=== PATIENT | male | born 1950 | race Caucasian/White ===

== ENCOUNTER 2022-10-25 00:37 | Day surgery (SDC) | payer MEDICARE, SELFPAY ==
--- NOTE | 2022-09-05 09:48 | PC.NURSE ---
Received last office visit of 08/31/2022 from wash worker. Pt had abnormal stress test and EKG, cardiology recommends pt to have a CCTA done for further evaluation of those test results and pt symptoms of fatigue and SOB with exertion. Reviewed by anesthesia-Dr. Cuellar per Mare Mar RN and he would like Neoplasm Screening to be postponed pending further cardiac work-up.
[2022-10-17 09:45] VITALS: BMI 24.4
--- NOTE | 2022-10-24 08:25 | P.PNAN_ITS ---
Anes - Initial Pre Proc Eval Procedure: Operation Date: 10/25/22 08:00 Proposed Procedures p Screening Colonoscopy - Jovanny Saenz MD Date/Time: 10/24/22 08:25 Surgeon: Jovanny Saenz MD Pre Op Diagnosis: neoplasm screening Patient Data Age: 72 Gender: M Height: 1.78 m Weight: 77.3 kg Allergies Allergy/AdvReac Type Severity Reaction Status Date / Time No Known Allergies Allergy Unknown Verified 10/25/22 07:04 Home Medications Medication Instructions Recorded Confirmed Type clopidogrel 75 mg tablet 75 mg PO DAILY 07/12/22 10/17/22 History rosuvastatin 10 mg tablet 10 mg PO DAILY 07/12/22 10/17/22 History amlodipine 10 mg tablet 10 mg PO DAILY 10/17/22 10/17/22 History aspirin 81 mg tablet 81 mg PO DAILY 10/17/22 10/17/22 History carvedilol 3.125 mg tablet 3.125 mg PO BID 10/17/22 10/17/22 History acyclovir 400 mg tablet 400 mg PO TID #15 tabs 10/22/22 Rx Patient hx anesthesia problems: none Family hx anesthesia problems: none Results Review: All pre-operative results and documents have been reviewed as part of the pre- operative evaluation. [facility] Past Medical History Medical History (Updated 10/24/22 @ 08:26 by Will Pompa DO) Hyperlipidemia Hypertension Peripheral arterial disease arterial doppler 04/09/2022 Surgical History Surgical History (Updated 07/10/22 @ 15:15 by Sondra Topete MA) Hx of bilateral inguinal hernia repair Family History Family History (Updated 07/10/22 @ 15:16 by Sondra Topete MA) Father Lung cancer Malignant neoplasm of prostate Mother Ovarian cancer Social History Social History (System 09/16/19 @ 14:54 by Angella Ruiz) Smoking packs per day: 1.5 Smoking cigarettes per day: 30.0 Years smoked: 55 Smoking pack-years: 82.50 Smoking status: Current every day smoker Tobacco type: cigarettes Alcohol intake: current Drinks per week: 6 Alcohol use details: beer Substance use: current Substance use type: marijuana Last use: occasionally Living arrangements: with family Spiritual care concerns: No Anes - Eval Final PreProcedure Day of Procedure 10/24/22 08:25 Patient weight: normal Heart: regular rate and rhythm Lungs: clear to auscultation and normal air movement Airway: Mallampati scale class II Neurological: alert and oriented Last oral intake: >/= 8 hours ASA classification: III Emergent: no Anesthetic plan: proceed Anesthesia type and monitoring: general GIVS and standard monitoring Results Review: All pre-operative results and documents have been reviewed as part of the pre- operative evaluation. Informed Consent: The patient's anesthetic plan and its attendant risks and benefits were discussed with the patient/family/POA. Questions were solicited and answers provided to the satisfaction of the patient/family/POA.
[2022-10-25 07:06] VITALS: BP 114/67; PULSE 67; RESP 18; TEMP 36.4; O2SAT 97
[2022-10-25] MEDS: LACTATED RINGERS 1,000 ML 150 ML IV CONT (07:15)
--- NOTE | 2022-10-25 07:51 | PM.HPGS ---
History of Present Illness History of Present Illness Consent: Risks, benefits, and alternatives have been discussed and questions answered. Patient agrees to proceed with procedure. Chief complaint: neoplasm screening Narrative: Audi Elena Sr. is a 72 year old male Presents for screening colonoscopy. Patient's current weight appetite and bowel movements are normal. Patient denies abdominal pain. He has had no bleeding. Family history noncontributory. Patient last colonoscopy 10 years ago was unremarkable. Patient does have a history of peripheral vascular disease and stents to the lower extremities for this reason he remains on Plavix which will be held briefly prior to endoscopy. Review of Systems Review of Systems: Review of systems noncontributory. [facility] Past Medical History Medical History (Updated 10/25/22 @ 07:52 by Jovanny Saenz MD) Hyperlipidemia Hypertension Peripheral arterial disease arterial doppler 04/09/2022 Surgical History Surgical History (Updated 07/10/22 @ 15:15 by Sondra Topete MA) Hx of bilateral inguinal hernia repair Family History Family History (Updated 07/10/22 @ 15:16 by Sondra Topete MA) Father Lung cancer Malignant neoplasm of prostate Mother Ovarian cancer Social History Social History (System 09/16/19 @ 14:54 by Angella Ruiz) Smoking packs per day: 1.5 Smoking cigarettes per day: 30.0 Years smoked: 55 Smoking pack-years: 82.50 Smoking status: Current every day smoker Tobacco type: cigarettes Alcohol intake: current Drinks per week: 6 Alcohol use details: beer Substance use: current Substance use type: marijuana Last use: occasionally Living arrangements: with family Spiritual care concerns: No Meds Home Medications and Allergies Home Medications Medication Instructions Recorded Confirmed Type clopidogrel 75 mg tablet 75 mg PO DAILY 07/12/22 10/17/22 History rosuvastatin 10 mg tablet 10 mg PO DAILY 07/12/22 10/17/22 History amlodipine 10 mg tablet 10 mg PO DAILY 10/17/22 10/17/22 History aspirin 81 mg tablet 81 mg PO DAILY 10/17/22 10/17/22 History carvedilol 3.125 mg tablet 3.125 mg PO BID 10/17/22 10/17/22 History acyclovir 400 mg tablet 400 mg PO TID #15 tabs 10/22/22 10/25/22 Rx Allergies Allergy/AdvReac Type Severity Reaction Status Date / Time No Known Allergies Allergy Unknown Verified 10/25/22 07:04 Vital Signs Vital Signs - 24 hr 10/25/22 07:06 Temperature 97.6 F Pulse Rate 67 Respiratory Rate 18 Blood Pressure 114/67 Pulse Oximetry 97 Oxygen Delivery Room Air Exam Narrative: Physical exam reveals patient be alert. Vital signs stable. HEENT exam is unremarkable. Patient is anicteric. Lungs are clear to auscultation and percussion. Heart is without murmur or extra sounds. Abdomen bowel sounds are present soft nontender with no organomegaly. Digital external rectal exam is normal. Assessment and Plan Assessment and plan (1) Encounter for screening colonoscopy: Code(s): Z12.11 - Encounter for screening for malignant neoplasm of colon Status: Acute Assessment and Plan: Patient presents today for screening colonoscopy. He appears to be at average risk for colon polyps. Further recommendations may be given after endoscopy.
[2022-10-25 08:14] VITALS: BP 95/53; PULSE 55; RESP 16; O2SAT 94
[2022-10-25 08:24] VITALS: BP 120/53; PULSE 64; RESP 16; O2SAT 95
[2022-10-25 08:34] VITALS: BP 126/65; PULSE 55; RESP 16; O2SAT 96
== END 2022-10-25 08:53 | disposition home or self-care (01) ==
PROVIDERS: PCP Family Medicine Adolescent Medicine; Visit Provider Internal Medicine Gastroenterology
PROC: 0DJD8ZZ Inspection of Lower Intestinal Tract, Via Natural or Artificial Opening Endoscopic (ICD-10-PCS; CPT 45378; principal; 2022-10-25 08:00)
DX: Z12.11 Encounter for screening for malignant neoplasm of colon (principal); K63.5 Polyp of colon; K64.8 Other hemorrhoids; I10 Essential (primary) hypertension; E78.5 Hyperlipidemia, unspecified; I73.9 Peripheral vascular disease, unspecified; Z79.02 Long term (current) use of antithrombotics/antiplatelets; Z79.84 Long term (current) use of oral hypoglycemic drugs; F17.210 Nicotine dependence, cigarettes, uncomplicated; F12.90 Cannabis use, unspecified, uncomplicated
CPT/HCPCS: 45385; 88305; J2704; J7120

== ENCOUNTER 2024-09-03 14:40 | Outpatient (CLI) | payer MEDICARE, SELFPAY ==
--- NOTE | ~2024-09-03 | XR_ITS ---
HISTORY: M25.511 - Pain in right shoulder COMPARISON: None TECHNIQUE: 3 views of the right shoulder were performed FINDINGS: No acute fracture. Degenerative disease is identified within the acromioclavicular joint space with osteophyte formation and medial downsloping. The glenohumeral joint space is maintained. Increased interstitial markings within the adjacent right lung field, with findings suggesting inters titial lung disease. The humeral head is well seated within the glenoid fossa. IMPRESSION: Degenerative disease, without acute fracture or anterior dislocation. Reviewed, dictated and finalized at location A. NSIVE LINE COACH
== END 2024-09-03 14:41 | disposition home or self-care (01) ==
LOC: MICIMG 14:41
PROVIDERS: PCP Family Medicine Adolescent Medicine; Visit Provider Nurse Practitioner Family
DX: M19.011 Primary osteoarthritis, right shoulder (principal)
CPT/HCPCS: 73030

== ENCOUNTER 2025-09-02 10:49 | Outpatient (CLI) | payer MEDICARE, SELFPAY ==
--- NOTE | ~2025-09-02 | CT_ITS ---
EXAMINATION:CT lung screening DATE: 09/02/2025 11:18 INDICATION: Screening TECHNIQUE: Computed tomography (CT) of the chest was performed without intravenous contrast. The dose-length product (DLP) was 79.37 mGy-cm. COMPARISON: None. FINDINGS: 6 x 3 x 4 cm left hilar mass present with 10 x 4 mm right major fissure pleural-based nodule image 74 series 4. No other lung nodules. Severe emphysematous changes with no consolidation effusion or pneumothorax. Lymphadenopathy probably present. The right-sided lymph nodes difficult to evaluate with noncontrast low-dose screening technique. Cystic changes in the left kidney. No acute process seen in the visualized upper abdomen. Diffuse degenerative changes throughout the bones which otherwise appear intact. IMPRESSION: Large left hilar mass likely representing malignant disease. Correlate with diagnostic contrast-enhanced chest CT or PET/CT. Reviewed, dictated and finalized at location A. ND SUPPORT EQUIPMENT ASSEMBLER IMPRESSION: Large left hilar mass likely representing malignant disease. Correl ate with diagnostic contrast-enhanced chest CT or PET/CT.
== END 2025-09-02 10:50 | disposition home or self-care (01) ==
LOC: MICIMG 10:49
PROVIDERS: PCP Family Medicine Adolescent Medicine; Visit Provider Family Medicine Adolescent Medicine
DX: Z12.2 Encounter for screening for malignant neoplasm of respiratory organs (principal); R91.8 Other nonspecific abnormal finding of lung field; Z87.891 Personal history of nicotine dependence
CPT/HCPCS: 71271

== ENCOUNTER 2025-09-28 07:27 | Outpatient (CLI) | payer MEDICARE, SELFPAY ==
--- NOTE | ~2025-09-28 | PE_ITS ---
EXAMINATION: PET skull to mid thigh DATE: 09/28/2025 10:56 INDICATION: Left hilar lung mass TECHNIQUE: Blood glucose level was 95 mg/dL. 9.227 mCi of 18-fluorodeoxyglucose (18-FDG) was administered i.v. Low dose computed tomography (CT) images were acquired from the base of the brain to the proximal thighs for attenuation correction and anatomic localization. Positron emission tomography (PET) images were acquired in the same distribution beginning minutes after injection. Images including fused PET/CT images were reconstructed in axial, coronal, and sagittal planes. Automated exposure control technique was employed. The dose-length product was 761.50mGy-cm. COMPARISON: None FINDINGS: Head/neck: There is symmetric increased activity in the oral cavity, palatine tonsils, laryngeal muscles and ocular muscles without CT correlate, likely physiologic. There is also mild uptake associated with moderate mucosal thickening in the bilateral maxillary sinuses. No pathologically enlarged cervical lymphadenopathy or suspicious foci of increased FDG uptake in the visualized head or neck. Chest: Severe emphysema. There is a 9 mm FDG avid left upper lobe nodule abutting the pleura along the pulmonary outflow tract with mild increased FDG uptake with maximal SUV of 4.4 suspicious for primary lung cancer. No pneumonia, pulmonary edema or pleural effusion. There is an approximately 4 cm FDG avid left hilar mass, the margins of which are difficult to distinguish from the pulmonary vasculature at the hilum and with maximal SUV of 9.0 concerning for metastatic disease. There is dependent atelectasis in the bilateral upper and lower lobes. Heart size is normal. Atherosclerotic coronary artery calcification. No pericardial effusion. Thoracic aorta is normal in caliber. Abdomen/pelvis/proximal thighs: Physiologic renal accumulation and excretion of FDG activity in the kidneys, bladder and along portions of ureters. Photopenic defects associated with bilateral low-attenuation renal cysts the largest on the right measuring 9.6 cm and the largest on the left measuring 6.5 cm. Normal degree and heterogenous pattern of increased uptake throughout the liver without radiologic correlate or dominant FDG avid lesion. The gallbladder, pancreas and bilateral adrenal glands are normal. Or stricture is atrophic calcifications along a small portion the spleen, likely sequela of prior infection, trauma or infarct. Mild uptake scattered throughout the bowels without radiologic correlate, also likely physiologic. Normal appendix. Prostatomegaly measuring 4.8 x 4.1 cm. Minimal ascites in the dependent the pelvis. There is calcified atherosclerosis of the aorta and many of the other arteries. There is stenting along the bilateral external iliac arteries. No other abnormal foci of increased FDG uptake or pathologically enlarged lymphadenopathy in the abdomen, pelvis or proximal thighs. Musculoskeletal: Mild lumbar levocurvature with severe spondylosis. Moderate thoracic and lower cervical spondylosis. No suspicious lytic, blastic or abnormally FDG avid bone lesions. IMPRESSION: 1. Small FDG avid nodule in the left upper lobe suspicious for primary lung cancer with bulky FDG avid left hilar lymphadenopathy consistent with metastatic disease. Given the location of the pulmonary nodule abutting the pulmonary outflow tract and the severity of emphysema would recommend bronchoscopic biopsy. 2. No lesion suspicious for metastatic disease in the abdomen or pelvis. 3. Prostatomegaly. 4. Small amount of nonspecific ascites in the deep pelvis. Reviewed, dictated and finalized at location A. HOUSE INSULATION WORKER IMPRESSION: 1. Small FDG avid nodule in the left upper lobe suspicious for primary lung can cer with bulky FDG avid left hilar lymphadenopathy consistent with metastatic d isease. Given the location of the pulmonary nodule abutting the pulmonary outfl ow tract and the severity of emphysema would recommend bronchoscopic biopsy. 2. No lesion suspicious for metastatic disease in the abdomen or pelvis. 3. Prostatomegaly. 4. Small amount of nonspecific ascites in the deep pelvis.
--- OUTSIDE RECORDS SUMMARY | 2025-09-28 07:30 | XMS_ITS | Clinical Summary ---
Author Organization [facility] Address [address] [place] [id number] Care Team Providers Care Aviation Engineer Name Role Phone Gordon Alexnadre MD Unavailable [phone] Khanh Whitehead MD Primary Care Prov ider Allergies No known active allergies Medications rosuvastatin (CRESTOR) 10 mg tablet Take 10 mg by mouth daily 04/30/2022 Active clopidogreL (PLAVIX) 75 mg tablet Take 75 mg by mouth daily 04/30/2022 Active docosahexaenoic acid-epa 120-180 mg capsule Take by mouth Active multivitamin capsule Take 1 capsule by mouth daily Active aspirin 81 mg chewable tablet Take 1 tablet (81 mg total) by mouth daily 30 tablet 11 07/28/2022 Active amLODIPine (NORVASC) 10 mg tablet Take 1 tablet (10 mg total) by mouth daily 30 tablet 11 07/27/2022 Active carvediloL (COREG) 3.125 mg tablet 11/23/2022 Active multivitamin-mi nerals-lutein tablet Take 1 tablet/capsul e by mouth daily Active omega-3 fatty acids-fish oil 300-1,000 mg capsule Take 2 capsules (2 g total) by mouth daily Active Active Problems Problem Noted Date Diagnosed Date PVD (peripheral vascular disease) 07/26/2022 Peripheral artery disease 05/16/2022 Overview (05/16/2022): Added automatically from request for surgery [id number] Surgical History Surgery Date Site/Laterality Comments FISTULA REPAIR HERNIA REPAIR HEMORROIDECTOMY Medical History Medical History Date Comments Peripheral artery disease GERD (gastroesophageal reflux disease) HL (hearing loss) Tinnitus Family History Medical History Relation Name Comments No Known Problems Father No Known Problems Mother Relation Name Status Comments Father Mother Social History Tobacco Use Types Packs/Day Years Used Date Smoking Tobacco: Every Day Cigarettes Smokeless Tobacco: Never Tobacco Cessation:Ready to Q uit: No; Counseling Given: Yes AUDIT-C Answer Date Recorded Q1: How often do you have a drink containing alc ohol? Monthly or less 07/26/2022 Q2: How many drinks containi ng alcohol do you have on a typical day when you are drinking? 1 or 2 07/26/2022 Q3: How often do you have si x or more drinks on one occasion? 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 Gender Identity Not on file Sexual Orientation Not on file Last Filed Vital Signs Vital Sign Reading Time Taken Comments Blood Pressure 127/68 07/27/2022 7:45 AM CDT Pulse 67 07/27/2022 7:45 AM CDT Temperature 36.7 C (98 F) 07/27/2022 7:45 AM CDT Respiratory Rate 20 07/27/2022 7:45 AM CDT Oxygen Saturation 94% 07/27/2022 7:45 AM CDT Inhaled Oxygen Concentration - - Weight 77.1 kg (170 lb) 11/23/2022 10:28 AM DIRECTOR OF FINANCIAL PLANNING Height 177.8 cm (5' 10) 11/23/2022 10:28 AM DIRECTOR OF FINANCIAL PLANNING Body Mass Index 24.39 11/23/2022 10:28 AM DIRECTOR OF FINANCIAL PLANNING Plan of Treatment Health Maintenance Due Date Last Done Comments Colon Cancer Screening-Colonoscopy 1950 Depression Screening 1950 Hepatitis C Screening 1950 DTaP/Tdap/Td Vaccine (1 - Tdap) 1962 Hepatitis B Screening 1969 Abdominal Aortic Aneurysm (A AA) Screen 2016 Well Visit 65+ 2016 Pneumococcal vaccine 65+ (2 of 2 - PPSV23, PCV20, or PCV21) 07/25/2017 05/30/2017 Fall Risk Assessment 07/27/2023 07/27/2022 Covid-19 Vaccine (6 - 2024-2 6 season) 2025 07/12/2022, 02/01/2022, 08/21/2021, Additional history exists Influenza Vaccine (#1) 2025 07/12/2022 Zoster Vaccine Completed 10/15/2019, 07/30/2019 Medical Devices Implanted Type Area Proposal Rep Device Identifier Shelf Expiration Date Model / Serial / Lot [employer] Everflex Entrust 6mm 100mm 120cm Self Expand Triaxial Low Profile - [id number] Implanted:Qty: 1 on 07/26/2022 by Gordon Alexandre MD at [facility] [employer] 10/16/2024 [id number] / / [id number] [employer] Everflex Entrust 7mm 80mm 120cm Triaxial Self Expand Low Profile - [id number] Implanted:Qty: 1 on 07/26/2022 by Gordon Alexandre MD at [facility] [employer] 11/25/2022 [id number] / / [id number] Insurance MEDICARE Advance Directives For more information, please contact: [phone] * Full Code (Latest Code Status on File) Date Activated Date Inactivated Comments 07/26/2022 4:48 PM 07/27/2022 2:20 PM Care Teams Aviation Engineer Relationship Specialty Start Date End Date Khanh Whitehead MD [address] [place] [address] PCP - General Family Medicine 06/17/25 Gordon Alexandre MD Consulting Physician Interventional Cardiology 07/27/22
== END 2025-09-28 07:28 | disposition home or self-care (01) ==
PROVIDERS: PCP Family Medicine Adolescent Medicine; Visit Provider Family Medicine Adolescent Medicine
DX: R91.8 Other nonspecific abnormal finding of lung field (principal); R91.1 Solitary pulmonary nodule; R18.8 Other ascites; N40.0 Benign prostatic hyperplasia without lower urinary tract symptoms
CPT/HCPCS: 78815; A9552

== ENCOUNTER 2025-10-11 11:27 | Emergency (ER) | payer MEDICARE, SELFPAY ==
[2025-10-11] VITALS (14 sets, daily range): BP systolic 111–155; BP diastolic 54–72; PULSE 46–62; RESP 14–22; TEMP 36.7; O2SAT 86–96
--- NOTE | ~2025-10-11 | XR_ITS ---
XR chest 2V 10/11/2025 12:56 Indication: Dyspnea Procedure: 2 view chest Comparison: No prior studies for comparison. Findings: Heart size normal. There is a left hilar mass, suspicious for malignancy. There is extensive mixed interstitial and airspace disease bilaterally. No significant effusion. No pneumothorax. The lungs are hyperinflated which is consistent with, but not diagnostic of chronic obstructive pulmonary disease. Impression: 1: Left hilar mass, suspicious for malignancy. Correlation with CT chest with contrast recommended. 2: Mixed interstitial and airspace disease bilaterally and primarily involving the mid and lower lung zones, most likely edema versus atypical pneumonia. Reviewed, dictated and finalized at location O. 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 Correlation with CT chest with c ontrast recommended. 2: Mixed interstitial and airspace disease bilaterally and primarily involving the mid and lower lung zones, most likely edema versus atypical pneumonia.
--- NOTE | 2025-10-11 11:41 | ECG_ITS ---
Test Date: 2025-10-11 12:01:45 Measurements Intervals Enloe Rate: 46 P: 62 SD: 142 QRS: 6 QRSD: 87 T: 56 QT: 459 QTc: 404 Interpretive Statements SINUS BRADYCARDIA BORDERLINE ST ABNORMALITY- ANTEROLATERAL LEADS BASELINE ARTIFACT- I, III, AVR, AVL ABNORMAL ECG No previous ECG available for comparison Electronically Signed On 10-11-2025 22:18:54 TOOL OR DIE DRAWING CHECKER by Salazar Franklin D.O.
--- OUTSIDE RECORDS SUMMARY | 2025-10-11 12:05 | XMS_ITS | Clinical Summary ---
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 Gender Identity Not on file Sexual Orientation [...] 77.1 kg (170 lb) 11/23/2022 10:28 AM TAPE RULES PRINTING MACHINE OPERATOR Height 177.8 cm (5' 10) 11/23/2022 10:28 AM TAPE RULES PRINTING MACHINE OPERATOR Body Mass Index 24.39 11/23/2022 10:28 AM TAPE RULES PRINTING MACHINE OPERATOR Plan of Treatment Health Maintenance Due Date [...] 10/15/2019, 07/30/2019 Medical Devices Implanted Type Area Bulk Tank Car Unloader Device Identifier Shelf Expiration Date Model / Serial / Lot [employer] Everflex Entrust 6mm 100mm 120cm Self Expand Triaxial Low Profile - [id number] Implanted:Qty: 1 on 07/26/2022 by Gordon Alexandre MD at [facility] [employer] 10/16/2024 [id number] / / [id number] [employer] Everflex Entrust 7mm 80mm 120cm Triaxial Self Expand Low Profile - [id number] Implanted:Qty: 1 on 07/26/2022 by Gordon Alexandre MD at [facility] [employer] 11/25/2022 [id number] / / [id number] Insurance MEDICARE Advance Directives For more information, please contact: [phone] * Full Code (Latest Code Status on File) Date Activated Date Inactivated Comments 07/26/2022 4:48 PM 07/27/2022 2:20 PM Care Teams Engineer Operations And Maintenance Relationship Specialty Start Date End Date Khanh Whitehead MD [address] [place] [address] PCP - General Family Medicine 06/17/25 Gordon Alexandre MD Consulting Physician Interventional Cardiology 07/27/22
--- OUTSIDE RECORDS SUMMARY | 2025-10-11 12:05 | XMS_ITS | Clinical Summary ---
Author Organization [facility] Address [address] [place] [address] Care Team Providers Care Applications Developer Name Role Phone Khanh Whitehead MD Unavailable [phone] Khanh Whitehead MD Primary Care Provider + Jolie Mccauley RN Unavailable Unavailab le Source Comments [facility],non-owned Affiliates and Associated Physician Practices is amultiple site organization consisting of ambulatory clinics and hospital sitesin [place], [place], [place] and [place]. This disclosure is being madepursuant to the Care Everywhere program and may not contain all information available regarding this patient. Last updated 18.[facility] Allergies No known active allergies Medications * Be aware that medications may not be up to date on this document. Alwaysverify current medications with the patient. [place]-3 Fatty Acids (FISH OIL) 1000 MG capsule Acti ve Fexofenadine HCl (MUCINEX ALLERGY PO) Active Active Problems Problem Noted Date Diagnosed Date Follow-up examination, following other surgery 0 10/23/2012 Displacement of lumbar inter vertebral disc without myelopathy 09/16/2012 Family History Medical History Relation Name Comments Cancer - Prostate Father CVA Mother Relation Name Status Comments Father Mother Social History Tobacco Use Types Packs/Day Years Used Date Smoking Tobacco: Every Day Cigarettes 1.5 45 Smokeless Tobacco: Never Tobacco Cessation:Ready to Q uit: No; Counseling Given: Yes Alcohol Use Standard Drinks/Week Comments Yes 1.7 (1 standard drink = 0.6 oz p ure alcohol) socially with pool Sex and Gender Information Value Date Recorded Sex Assigned at Not on file Legal Sex Male 11:38 AM QUESTIONED DOCUMENTS EXAMINER Gender Identity Not on file Sexual Orientation Not on file 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 on file Not on file Not on file Last Filed Vital Signs Vital Sign Reading Time Taken Comments Blood Pressure 107/69 03/25/2018 11:00 AM CDT Pulse 51 03/25/2018 11:00 AM CDT Temperature 36.3 C (97.4 F) 03/25/2018 11:00 AM CDT Respiratory Rate 16 01/24/2018 1:56 PM CDT Oxygen Saturation 96% 03/25/2018 11:00 AM CDT Inhaled Oxygen Concentration - - Weight 76.2 kg (168 lb) 03/25/2018 11:00 AM CDT Height 175.3 cm (5' 9) 03/25/2018 11:00 AM CDT Body Mass Index 24.81 03/25/2018 11:00 AM CDT Plan of Treatment Health Maintenance Due Date Last Done Comments COLOGUARD (AGES 45-75) - COL ON CA SCREENING 1951 COLON MONITORING 1951 COLONOSCOPY - COLON CA SCREENING 1951 CT COLONOGRAPHY - COLON CA SCREENING 1950 Colorectal Cancer Screening 1951 FIT - COLON CA SCREENING 1951 FLEX SIG - COLON CA SCREENING 1951 LIPID TESTING 1951 HEPATITIS C SCREENING 07/01/1969 DTAP/TDAP/TD VACCINES (1 - Tdap) 1970 LUNG CANCER SCREENING 2001 PNEUMOCOCCAL VACCINE 50+ (1 of 1 - PCV) 2001 ZOSTER VACCINE (1 of 2) 2001 AAA SCREENING 2016 DEPRESSION SCREENING 10/14/2024 COVID-19 VACCINE (1 - 2024-2 6 season) 2025 INFLUENZA VACCINE (#1) 2025 Respiratory Syncytial Virus (RSV) Vaccine Pt: or over 60 yrs (1 - 1-dose 75+ series) 2026 HEPATITIS B VACCINE Aged Out No longe r eligible based on patient's age to complete this topic HIB VACCINE Aged Out No longer eligi ble based on patient's age to complete this topic HPV VACCINE Aged Out No longer eligi ble based on patient's age to complete this topic MENINGOCOCCAL (Group B) VACC INE SHARED DECISION-MAKING Aged Out No longer eligibl e based on patient's age to complete this topic MENINGOCOCCAL GROUPS A/C/Y/W VACCINE Aged Out No longer eligible b ased on patient's age to complete this topic Medical Devices Implanted Type Area Flight Crew Ordnanceman Device Identifier Shelf Expiration Date Model / Serial / Lot Mesh Srg 3dmax 6x4in Lg 3d Crv Contr Sl Implanted:Qty: 1 on 01/24/2018 by Sav Trivedi MD at [facility] Right: Inguinal [employer] 09/10/2022 [id number] / / [id number] Mesh Srg 3dmax 6x4in Lg 3d Crv Contr Sl Implanted:Qty: 1 on 01/24/2018 by Sav Trivedi MD at [facility] Left: Inguinal [employer] 12/11/2022 [id number] / / [id number] Insurance AETNA BC/BLUE BLUE CROSS BLUE [facility] AETNA Advance Directives * FULL RESUSCITATION (Latest Code Status on File) Date Activated Date Inactivated Comments 09/30/2012 3:40 PM 10/01/2012 12:17 PM Care Teams Applications Developer Relationship Specialty Start Date End Date Khanh Whitehead MD [address] [address] PCP - General Family Medicine 09/30/12 Khanh Whitehead MD [address] [place] [id number] Referring Physician Family Medicine 09/15/12 Jolie Mccauley, RN Registered Nurse 01/24/18
[2025-10-11 12:08] LABS: Hematocrit 46.7 % (42.0-52.0); Hemoglobin 16.0 g/dL (14.0-18.0); Immature Granulocyte Percent A 0.4 % (0-0.5); Lymphocytes Absolute Auto 1.55 K/mm3 (0.9-3.2); Mean Corpuscular HGB Conc 34.3 g/dl (32-36); Mean Corpuscular Hemoglobin 34.3 pg (26-34); Mean Corpuscular Volume 100.2 fl (80-100); Nucleated Red Blood Cells Absolute Auto 0.000 K/mm3 (0.0-0.012); Nucleated Red Blood Cells Perc 0.0 % (0.0-0.2); Platelet Count Result 223 k/mm3 (150-375); Red Blood Count 4.66 M/mm3 (4.6-6.20); White Blood Count 9.3 K/mm3 (4.5-10.0)
[2025-10-11 12:34] LABS: Alanine Aminotransferase 20 U/L (6-50); Albumin Level 4.2 g/dL (3.5-5.1); Alkaline Phosphatase 54 U/L (38-126); Anion Gap 5 mmol/L (4-12); Aspartate Amino Transferase 32 U/L (17-59); Bilirubin,Total 0.8 mg/dL (0.2-1.3); Blood Urea Nitrogen 18 mg/dL (9-20); Calcium 9.4 mg/dL (8.4-10.2); Carbon Dioxide 23 mmol/L (22-30); Chloride 108 mmol/L (98-107); Estimated CRCL calculation 73 ml/min; Estimated Glomerular Filt Rate > 60; Glucose 92 mg/dL (65-110); Potassium 4.6 mmol/L (3.4-5.0); Sodium 136 mmol/L (137-145); Total Protein 7.6 g/dL (6.3-8.2)
--- OUTSIDE RECORDS SUMMARY | 2025-10-11 12:35 | XMS_ITS | Clinical Summary ---
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 Gender Identity Not on file Sexual Orientation [...] 77.1 kg (170 lb) 11/23/2022 10:28 AM INFORMATION TECHNOLOGY CONSULTANT Height 177.8 cm (5' 10) 11/23/2022 10:28 AM INFORMATION TECHNOLOGY CONSULTANT Body Mass Index 24.39 11/23/2022 10:28 AM INFORMATION TECHNOLOGY CONSULTANT Plan of Treatment Health Maintenance Due Date [...] 10/15/2019, 07/30/2019 Medical Devices Implanted Type Area Medical Examiner Device Identifier Shelf Expiration Date Model / Serial / Lot Medtronic Inc Everflex Entrust 6mm 100mm 120cm Self Expand Triaxial Low Profile - [id number] Implanted:Qty: 1 on 07/26/2022 by Gordon Alexandre MD at [facility] [employer] 10/16/2024 [id number] / / [id number] Med[employer] Inc Everflex Entrust 7mm 80mm 120cm Triaxial Self Expand Low Profile - [id number] Implanted:Qty: 1 on 07/26/2022 by Gordon Alexandre MD at [facility] [employer] 11/25/2022 [id number] / / [id number] Insurance MEDICARE Advance Directives For more information, please contact: [phone] * Full Code (Latest Code Status on File) Date Activated Date Inactivated Comments 07/26/2022 4:48 PM 07/27/2022 2:20 PM Care Teams Gambling Box Person Relationship Specialty Start Date End Date Khanh Whitehead MD [address] [place] [address] PCP - General Family Medicine 06/17/25 Gordon Alexandre MD Consulting Physician Interventional Cardiology 07/27/22
--- OUTSIDE RECORDS SUMMARY | 2025-10-11 12:35 | XMS_ITS | Clinical Summary ---
Author Organization [facility] Address [address] [place] [address] Care Team Providers Care Behavioral Scientist Name Role Phone Khanh Whitehead MD Unavailable [phone] Khanh Whitehead MD Primary Care Provider + Jolie Mccauley RN Unavailable Unavailab le Source Comments [facility],non-owned Affiliates and Associated Physician Practices is amultiple site organization consisting of ambulatory clinics and hospital sitesin [place], [place], [place] and [place]. This disclosure is being madepursuant to the Care Everywhere program and may not contain all information available regarding this patient. Last updated 18.[facility] Allergies No known active allergies Medications * Be aware that medications may not be up to date on this document. Alwaysverify current medications with the patient. 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 Not on file Not [...] this topic Medical Devices Implanted Type Area Creative Manager Device Identifier Shelf Expiration Date Model / Serial / Lot Mesh Srg 3dmax 6x4in Lg 3d Crv Contr Sl Implanted:Qty: 1 on 01/24/2018 by Sav Trivedi MD at [facility] Right: Inguinal [employer] 09/10/2022 [id number] / / [id number] Mesh Srg 3dmax 6x4in Lg 3d Crv Contr Sl Implanted:Qty: 1 on 01/24/2018 by Sav Trivedi MD at [facility] Left: Inguinal [employer] 12/11/2022 [id number] / / [id number] Insurance AETNA BC/BLUE BLUE CROSS BLUE [facility] AETNA Advance Directives * FULL RESUSCITATION (Latest Code Status on File) Date Activated Date Inactivated Comments 09/30/2012 3:40 PM 10/01/2012 12:17 PM Care Teams Behavioral Scientist Relationship Specialty Start Date End Date Khanh Whitehead MD [address] [address] PCP - General Family Medicine 09/30/12 Khanh Whitehead MD [address] [place] [id number] Referring Physician Family Medicine 09/15/12 Jolie Mccauley, RN Registered Nurse 01/24/18
[2025-10-11] MEDS: IPRATROPIUM 0.5 MG/ALBUTEROL SULFATE 2.5 MG (BASE) AMPUL.NEB 3 ML INHALATION (12:53)
[2025-10-11 13:45] LABS: NT Pro B Type Natriuretic Pept 542 pg/mL (19.9-100)
--- NOTE | 2025-10-11 13:57 | ED.GENADULT ---
HPI - General Adult General Chief complaint: Shortness of Breath/Dyspnea Stated complaint: Shortness of breath Time Seen by Provider: 10/11/25 12:05 History of Present Illness HPI narrative: Patient is a 75-year-old male with history of lung mass who presents ER with shortness of breath. Recently had a PET scan that shows a hilar mass with lymph node involvement. No runny nose or sore throat. No productive cough. No fevers or chills or sweats. Without nausea or vomiting. Just has exertional dyspnea and fatigue. Hypoxic on arrival here. Reports 2 weeks ago he did have a colder he is coughing frequently but feels like he has gotten over that. Related Data Home Medications ?Medication ?Instructions ?Recorded ?Confirmed ?Last Taken ?Type clopidogrel 75 mg tablet 75 mg PO DAILY 07/12/22 10/11/25 10/11/25 History rosuvastatin 10 mg tablet 10 mg PO DAILY 07/12/22 10/11/25 10/11/25 History amlodipine 10 mg tablet 10 mg PO DAILY 10/17/22 10/11/25 10/11/25 History aspirin 81 mg tablet 81 mg PO DAILY 10/17/22 10/11/25 10/11/25 History carvedilol 3.125 mg tablet 3.125 mg PO BID 10/17/22 10/11/25 10/11/25 History omega-3 acid ethyl esters 1 gram 1 cap PO DAILY 08/16/25 10/11/25 10/11/25 History capsule Allergies Allergy/AdvReac Type Severity Reaction Status Date / Time No Known Allergies Allergy Unknown Verified 10/11/25 11:49 Review of Systems Review of Systems: All systems reviewed & are unremarkable except as noted in HPI and below Constitutional: Constitutional: Reports no additional constitutional complaints Cardiovascular: Cardiovascular: Reports no additional cardiovascular complaints Respiratory: Respiratory: Reports no additional respiratory complaints Musculoskeletal: Musculoskeletal: Reports no additional musculoskeletal complaints [facility] Past Medical History Medical History (Updated 10/11/25 @ 16:30 by Joey Arroyo MD) Hypertension Hyperlipidemia Peripheral arterial disease arterial doppler 04/09/2022 Surgical History Surgical History (Updated 07/10/22 @ 15:15 by Sondra Topete MA) Hx of bilateral inguinal hernia repair Family History Family History (Updated 07/10/22 @ 15:16 by Sondra Topete MA) Father Lung cancer Malignant neoplasm of prostate Mother Ovarian cancer Social History Social History (System 09/16/19 @ 14:54 by Angella Ruiz) Smoking packs per day: 1.5 Smoking cigarettes per day: 30.0 Years smoked: 55 Smoking pack-years: 82.50 Smoking status: Current every day smoker Tobacco type: cigarettes Alcohol intake: current Drinks per week: 6 Alcohol use details: beer Substance use: current Substance use type: marijuana Last use: occasionally Living arrangements: with family Spiritual care concerns: No Exam Narrative: GENERAL: Well-appearing, well-nourished, and in no acute distress. HEAD: Normocephalic, atraumatic. EYES: PERRL and EOMI. ENT: Mucous membranes moist. Engorged veins of nose. CHEST: Clear to auscultation. No respiratory distress. HEART: Bradycardic and regular. Normal peripheral pulses. ABDOMEN: Soft, nontender, nondistended. EXTREMITIES: Normal range of motion. No edema. Digital clubbing. SKIN: Warm, dry, no rash. NEURO: Alert and oriented x3. PSYCH: Normal mood and affect. Course Course Emergency Course: Recent PET scan shows that patient has severe emphysema. He is requiring oxygen here. Respiratory therapy has been down to evaluate the patient and he requires 3 L of a continuous O2. Lab work unremarkable. Chest x-ray with known lung mass, atypical haziness also seen. We will get him a tank of oxygen for discharge and a oxygen company will be contacted to bring him O2 for home. Will give antibiotics at a caution the white blood cell count is normal he has no fever or worsening cough. Vital Signs Vital signs: Vital Signs Temperature 98.1 F 10/11/25 11:34 Pulse Rate 54 L 10/11/25 11:34 Respiratory Rate 22 H 10/11/25 11:34 Blood Pressure 145/72 H 10/11/25 11:34 Pulse Oximetry 88 L 10/11/25 11:34 Oxygen Delivery Room Air 10/11/25 11:34 Temperature 98.1 F 10/11/25 11:34 Pulse Rate 48 L 10/11/25 16:15 Respiratory Rate 14 10/11/25 14:43 Blood Pressure 131/62 10/11/25 14:43 Pulse Oximetry 92 10/11/25 16:15 Oxygen Delivery Nasal Cannula 10/11/25 16:15 Oxygen Flow Rate 3 10/11/25 16:15 MDM Differential Diagnosis Differential Diagnosis: Pneumonia, viral syndrome, COPD exacerbation, chronic respiratory failure, CHF exacerbation, amongst others Lab Data 10/11/25 11:59 10/11/25 11:59 Labs: Lab Results 10/11/25 Range/Units 11:59 WBC 9.3 (4.5-10.0) K/mm3 RBC 4.66 (4.6-6.20) M/mm3 Hgb 16.0 (14.0-18.0) g/dL Hct 46.7 (42.0-52.0) % MCV 100.2 H (80-100) fl MCH 34.3 H (26-34) pg MCHC 34.3 (32-36) g/dl RDW 14.4 (11.5-14.5) % Plt Count 223 (150-375) k/mm3 MPV 9.4 (7.4-10.4) fl Immature Gran % (Auto) 0.4 (0-0.5) % Neut % (Auto) 70.1 (45.5-73.1) % Lymph % (Auto) 16.6 L (18.3-44.2) % Travis % (Auto) 9.1 H (2.6-8.5) % Eos % (Auto) 2.7 (0-4.4) % Baso % (Auto) 1.1 (0.2-1.2) % Lymph # (Auto) 1.55 (0.9-3.2) K/mm3 Travis # (Auto) 0.9 H (0.1-0.6) K/mm3 Eos # (Auto) 0.3 (0-0.3) K/mm3 Baso # (Auto) 0.1 (0.0-0.1) K/mm3 Abs Immat Gran (auto) 0.04 H (0.00-0.031) K/mm3 Absolute Neuts (auto) 6.5 (1.3-6.7) K/mm3 Absolute Nucleated RBC 0.000 (0.0-0.012) K/mm3 Nucleated RBC % 0.0 (0.0-0.2) % Sodium 136 L (137-145) mmol/L Potassium 4.6 (3.4-5.0) mmol/L Chloride 108 H (98-107) mmol/L Carbon Dioxide 23 (22-30) mmol/L Anion Gap 5 (4-12) mmol/L BUN 18 (9-20) mg/dL Creatinine 0.79 (0.7-1.3) mg/dL Estim Creat Clear Calc 73 ml/min Estimated GFR > 60 (59 - ) Glucose 92 (65-110) mg/dL Calcium 9.4 (8.4-10.2) mg/dL Total Bilirubin 0.8 (0.2-1.3) mg/dL AST 32 (17-59) U/L ALT 20 (6-50) U/L Alkaline Phosphatase 54 (38-126) U/L NT-Pro-B Natriuret Pep 542 H (19.9-100) pg/mL Total Protein 7.6 (6.3-8.2) g/dL Albumin 4.2 (3.5-5.1) g/dL Imaging Data Attestation: I personally reviewed and interpreted this imaging study as follows: Radiologist's impression: ITS Impressions Chest X-Ray 10/11/25 12:59 Impression: 1: Left hilar mass, suspicious for malignancy. Correlation with CT chest with contrast recommended. 2: Mixed interstitial and airspace disease bilaterally and primarily involving the mid and lower lung zones, most likely edema versus atypical pneumonia. ECG Data EKG #1: ECG completion date: 10/11/25 ECG completion time: 12:01 bradycardia (46), sinus rhythm, non-specific ST changes, normal QRS and normal QT Discharge Plan Discharge Clinical Impression: Emphysema, unspecified, Requires continuous at home supplemental oxygen Patient Disposition: Home Condition: Stable Instructions: Using Oxygen at Home (ED), Emphysema (ED) Additional Instructions: Your lab work was within normal limits without side infection. Your chest x-ray shows a lung mass which you are being evaluated for. There is also some atypical haziness that could represent pneumonia though you're not having fevers or productive cough. You will be given antibiotics as a precaution. Follow-up with your PCP. Return the ER if you are having worsening symptoms or you become confused. Patient Language: Djiboutian Prescriptions: New albuterol sulfate 90 mcg/actuation HFA aerosol inhaler 4 puff inhalation QID PRN (Reason: shortness of breath or wheezing) Qty: 8.5 0RF doxycycline hyclate 100 mg tablet 100 mg PO BID Qty: 10 0RF amoxicillin-pot clavulanate 875-125 mg tablet 1 tablet PO Q12H Qty: 10 0RF No Action omega-3 acid ethyl esters 1 gram capsule 1 cap PO DAILY clopidogrel 75 mg tablet 75 mg PO DAILY rosuvastatin 10 mg tablet 10 mg PO DAILY carvedilol 3.125 mg tablet 3.125 mg PO BID amlodipine 10 mg tablet 10 mg PO DAILY aspirin [Adult Low Dose Aspirin] 81 mg Tablet 81 mg PO DAILY tamsulosin 0.4 mg capsule 0.4 mg PO DAILY Qty: 90 3RF ibuprofen 600 mg tablet 600 mg PO TID Qty: 30 0RF acyclovir 400 mg tablet See Rx Instructions .ROUTE .COMPLEX Qty: 15 3RF Dose Instruction: TAKE 1 TABLET BY MOUTH THREE TIMES A DAY Rx Instructions: TAKE 1 TABLET BY MOUTH THREE TIMES A DAY ipratropium bromide 42 mcg (0.06 %) spray,non-aerosol 2 spray intranasal TID Qty: 45 2RF Rx Instructions: administer into each nostril Follow-up/Referrals: Khanh Whitehead MD [Primary Care Provider, Family Practice] - 1 Week
--- NOTE | 2025-10-11 16:40 | HOMEO2EVAL ---
Evaluation was performed at [facility] Home Oxygen Evaluation RC: Home Oxygen (O2) Evaluation Start: 10/11/25 15:39 Freq: ONCE Status: Active Protocol: RPE Activity Type Activity Date Activity User E-sign Co-sign Detail Recorded Client Recorded Date Recorded By Document 10/11/25 16:00 LYN [email or web address] 10/11/25 16:39 LYN Document 10/11/25 16:05 LYN [email or web address] 10/11/25 16:39 LYN Document 10/11/25 16:07 LYN [email or web address] 10/11/25 16:39 LYN Document 10/11/25 16:10 LYN [email or web address] 10/11/25 16:39 LYN Document 10/11/25 16:15 LYN [email or web address] 10/11/25 16:39 LYN 10/11/25 10/11/25 10/11/25 16:00 16:05 16:07 Home O2 Evaluation [Oxygen] -Test Phase Resting Resting Resting -Oxygen Delivery Room Air Nasal Cannula Nasal Cannula -Oxygen Flow Rate (L/min) 2 3 [Pulse Oximetry] -Pulse Oximetry (90-100 %) 86 L 87 L 92 [Pulse Rate] -Pulse Rate (60-100 beats/min) 50 L 49 L [Evaluation] -Activity Tolerance [Exercise] -Ambulation Distance (feet) -Ambulation Distance (meters) [Comments] -Home Oxygen Evaluation Comments [Charges] -Evaluation Charges O2 Evaluation by Pulmonary 10/11/25 10/11/25 16:10 16:15 Home O2 Evaluation [Oxygen] -Test Phase Exercise Resting -Oxygen Delivery Nasal Cannula Nasal Cannula -Oxygen Flow Rate (L/min) 3 3 [Pulse Oximetry] -Pulse Oximetry (90-100 %) 91 92 [Pulse Rate] -Pulse Rate (60-100 beats/min) 59 L 48 L [Evaluation] -Activity Tolerance Excellent [Exercise] -Ambulation Distance (feet) 400 -Ambulation Distance (meters) 121.91 [Comments] -Home Oxygen Evaluation Comments Home O2 eval done, patient requires 3 liters at rest and with activity [Charges] -Evaluation Charges
== END 2025-10-11 17:57 | disposition home or self-care (01) ==
PROVIDERS: Emergency Medicine; Emergency Provider Emergency Medicine; PCP Family Medicine Adolescent Medicine
DX: J43.9 Emphysema, unspecified (principal); Z99.81 Dependence on supplemental oxygen; R91.8 Other nonspecific abnormal finding of lung field; I10 Essential (primary) hypertension; I73.9 Peripheral vascular disease, unspecified; E78.5 Hyperlipidemia, unspecified; F17.210 Nicotine dependence, cigarettes, uncomplicated
CPT/HCPCS: 36415; 71046; 80053; 83880; 85025; 93005; 94640; 99284